=== PATIENT | female | born 1955 ===

== ENCOUNTER → 2023-05-10 | Day surgery (SDC) | payer OTHER ==
[~2023-05-10] MED LIST: DIPHENHYDRAMINE HCL 50 MG/ML VIAL 1ML IV ONE; MIDAZOLAM HCL 2 MG/2 ML VIAL IV ONE; fentaNYL CITRATE 50 MCG/ML AMPUL IV ONE
== END | disposition home or self-care (01) ==
LOC: ADM 05-04 14:30 → AMB-ENDOS 06:03
PROVIDERS: ATTEND Surgery
DX: D12.2 Benign neoplasm of ascending colon (principal); K63.5 Polyp of colon; K57.30 Diverticulosis of large intestine without perforation or abscess without bleeding; K64.8 Other hemorrhoids; K91.840 Postprocedural hemorrhage of a digestive system organ or structure following a digestive system procedure; Z86.010 Personal history of colon polyps